=== PATIENT | male | born 1960 | race Caucasian/White ===

== ENCOUNTER 2017-06-02 18:15 | Inpatient (IN) | payer OTHER ==
[2017-06-02] VITALS (10 sets, daily range): BP systolic 143–177; BP diastolic 99–106; PULSE 116–128; RESP 18–20; TEMP 97.8–98.3; O2SAT 91–95
[~2017-06-02] VITALS: Ht 182.9 cm; Wt 112.3 kg
[2017-06-02] MEDS ORDERED: OXYC15TA PO (18:54)
[2017-06-02] MEDS ORDERED: SODIUM CHLORIDE 0.9% FLUSH 10 ML FLUSH IV FLUSH PRN ×2 (19:00→20:15)
[2017-06-02] MEDS ORDERED: SODIUM CHLORID 0.9% 500 ML INJ 500 ML IV ONE (19:00)
--- NOTE | 2017-06-02 19:06 | PD ---
HPI Chief Complaint: General Weakness Time Seen by Provider: 18:36 Travel History International Travel<30 days: No Contact w/Intl Traveler<30days: No Traveled to known affect area: No History of Present Illness HPI The patient is a 57-year-old male who presents to the emergency department for generalized weakness and lethargy of 1-2 months duration. The patient states his symptoms started several months ago, initially thought it was related allergies. However, he notes increasing lethargy, generalized weakness, on a regular basis in [place], [place], where he is from. Patient saw his primary physician several weeks ago and was prescribed a phlebotomy, however, could not find a location to receive the phlebotomy. However, he states the symptoms are slightly different than his previous symptoms with polycythemia. He denies any chest pain, does note exertional shortness of breath. He denies any nausea, vomiting, diarrhea, or abdominal pain. He does note a weight loss of 30-40 pounds over the last 6 months, has not been trying to lose weight on a regular basis. He denies any black tarry stools or rectal bleeding. He does have a history of anemia after previous phlebotomies, but denies any recent history of anemia. The patient does drink 1/5 of vodka daily. PFSH Past Medical History Narrative Medical Polycythemia Medical other: Yes (WHITE BLOOD CELL DISORDER) Musculoskeletal: Yes Tetanus Vaccination: > 5 Years Influenza Vaccination: No Past Surgical History Narrative Surgical Left hip replacement, umbilical hernia repair Abdominal Surgery: Yes (HERNIA REPAIR) Social History Alcohol Use: Yes (16 OZ LIQUAR DAILY) Tobacco Use: No Substance Use: No Allergies-Medications (Allergen,Severity, Reaction): Coded Allergies: No Known Allergies (Verified Allergy, Unknown, 06/02/17) Reported Meds & Prescriptions Reported Meds & Active Scripts Active Reported Oxycodone (Oxycodone HCl) 15 Mg Tab 15 Mg PO Q6H PRN Review of Systems Except as stated in HPI: all other systems reviewed are Neg General / Constitutional: Positive: Weight Loss, No: Fever HENT: No: Lightheadedness Cardiovascular: Positive: Dyspnea on exertion, No: Chest Pain or Discomfort Respiratory: No: Shortness of Breath Gastrointestinal: No: Nausea, Vomiting Musculoskeletal: Positive: Weakness Neurologic: Positive: Weakness Psychiatric: Positive: Substance Abuse (Drinks 1/5 of vodka daily) Hematologic/Lymphatic: Positive: Other (History of polycythemia) Physical Exam Narrative GENERAL: Awake, alert, pleasant 57-year-old male who appears his stated age and is in no acute respiratory distress. SKIN: Focused skin assessment warm/dry. HEAD: Atraumatic. Normocephalic. King complexion with hypervascularity over the nose. EYES: Pupils equal and round. Mild injection bilaterally. ENT: No nasal bleeding or discharge. Slight smell of alcohol on her breath. NECK: Trachea midline. No JVD. CARDIOVASCULAR: Regular, tachycardic with a heart rate in the 120s. RESPIRATORY: No accessory muscle use. Clear to auscultation. Breath sounds equal bilaterally. GASTROINTESTINAL: Abdomen soft, n slightly distended, no rebound tenderness. Splenic margins not palpable. MUSCULOSKELETAL: No obvious deformities. No clubbing. No cyanosis. No edema. NEUROLOGICAL: Awake and alert. No obvious cranial nerve deficits. Motor grossly within normal limits. Normal speech. Nonfocal. PSYCHIATRIC: Appropriate mood and affect; insight and judgment normal. Data Data Last Documented VS Vital Signs Date Time Temp Pulse Resp B/P (MAP) Pulse Ox O2 Delivery O2 Flow Rate FiO2 06/02/17 20:00 119 18 171/100 (123) 94 Room Air 06/02/17 18:17 97.8 Orders Orders Electrocardiogram (06/02/17 18:50) Complete Blood Count With Diff (06/02/17 18:50) Comprehensive Metabolic Panel (06/02/17 18:50) Creatine Kinase (Cpk) (06/02/17 18:50) Thyroid Stimulating Hormone (06/02/17 18:50) Urinalysis - C+S If Indicated (06/02/17 18:50) Chest, Single Ap (06/02/17 18:50) Blood Glucose (06/02/17 18:50) Ecg Monitoring (06/02/17 18:50) Iv Access Insert/Monitor (06/02/17 18:50) Oximetry (06/02/17 18:50) Sodium Chloride 0.9% Flush (Ns Flush) (06/02/17 19:00) Alcohol (Ethanol) (06/02/17 18:50) Free T3 (06/02/17 18:50) Free Thyroxine (T4) (06/02/17 18:50) Sodium Chlorid 0.9% 500 Ml Inj (Ns 500 M (06/02/17 19:00) Sodium Chlor 0.9% 1000 Ml Inj (Ns 1000 M (06/02/17 19:45) Resp Oxygen Nasal Cannula (06/02/17 ) Admit Order (Ed Use Only) (06/02/17 20:07) Place In Observation (06/02/17 ) Vital Signs (Adult) Q4H (06/02/17 20:07) Activity Oob With Assistance (06/02/17 20:07) Credentialing Manager / Telemetry .CONTINUOUS (06/02/17 20:07) Intake + Output NICHO.QSHIFT (06/02/17 20:07) Diet Heart Healthy (06/03/17 Breakfast) Sodium Chlor 0.9% 1000 Ml Inj (Ns 1000 M (06/02/17 20:07) Sodium Chloride 0.9% Flush (Ns Flush) (06/02/17 20:15) Sodium Chloride 0.9% Flush (Ns Flush) (06/02/17 21:00) Acetaminophen (Tylenol) (06/02/17 20:15) Prochlorperazine Supp (Compazine Supp) (06/02/17 20:15) Complete Blood Count With Diff (06/03/17 06:00) Naloxone Inj (Narcan Inj) (06/02/17 20:15) Lorazepam Inj (Ativan Inj) (06/02/17 20:15) Labs Laboratory Tests Test 06/02/17 18:57 06/02/17 19:43 White Blood Count 2.9 TH/MM3 Red Blood Count 6.81 MIL/MM3 Hemoglobin 19.3 GM/DL Hematocrit 58.9 % Mean Corpuscular Volume 86.5 FL Mean Corpuscular Hemoglobin 28.4 PG Mean Corpuscular Hemoglobin Concent 32.8 % Red Cell Distribution Width 22.7 % Platelet Count 109 TH/MM3 Mean Platelet Volume 7.3 FL Neutrophils (%) (Auto) 51.2 % Lymphocytes (%) (Auto) 32.4 % Monocytes (%) (Auto) 14.7 % Eosinophils (%) (Auto) 1.1 % Basophils (%) (Auto) 0.6 % Neutrophils # (Auto) 1.5 TH/MM3 Lymphocytes # (Auto) 1.0 TH/MM3 Monocytes # (Auto) 0.4 TH/MM3 Eosinophils # (Auto) 0.0 TH/MM3 Basophils # (Auto) 0.0 TH/MM3 CBC Comment DIFF FINAL Differential Comment Blood Urea Nitrogen 8 MG/DL Creatinine 0.85 MG/DL Random Glucose 320 MG/DL Total Protein 8.5 GM/DL Albumin 4.3 GM/DL Calcium Level 8.7 MG/DL Alkaline Phosphatase 115 U/L Aspartate Amino Transf (AST/SGOT) 92 U/L Alanine Aminotransferase (ALT/SGPT) 103 U/L Total Bilirubin 0.8 MG/DL Sodium Level 135 MEQ/L Potassium Level 3.2 MEQ/L Chloride Level 92 MEQ/L Carbon Dioxide Level 29.7 MEQ/L Anion Gap 13 MEQ/L Estimat Glomerular Filtration Rate 93 ML/MIN Total Creatine Kinase 213 U/L Free Thyroxine 0.88 NG/DL Free Triiodothyronine (T3) pg/dL 3.11 PG/ML Thyroid Stimulating Hormone 3rd Gen 0.816 uIU/ML Ethyl Alcohol Level 303 MG/DL Urine Color YELLOW Urine Turbidity CLEAR Urine pH 6.5 Urine Specific [place] 1.015 Urine Protein 300 OR GREATER mg/dL Urine Glucose (UA) 1000 OR GREATER mg/dL Urine Ketones 15 mg/dL Urine Occult Blood MOD Urine Nitrite NEG Urine Bilirubin NEG Urine Urobilinogen 0.2 MG/DL Urine Leukocyte Esterase NEG Urine RBC 0-3 /hpf Urine WBC 0-2 /hpf Urine Squamous Epithelial Cells 0-5 /hpf Microscopic Urinalysis Comment CATH-CULT NOT IND MDM Medical Decision Making Medical Screen Exam Complete: Yes Emergency Medical Condition: Yes Medical Record Reviewed: Yes Interpretation(s) EKG reveals sinus tachycardia with a heart rate of 122. Q-wave noted in lead III. Nonspecific T-wave changes noted. Differential Diagnosis Differential diagnosis includes hyperthyroidism, hypothyroidism, cancer, hyponatremia, alcohol abuse, polycythemia, hypocalcemia, hypercalcemia, depression, symptomatic anemia. Narrative Course IV was established, labs were drawn and sent, the patient was placed on cardiac telemetry monitoring and continuous pulse oximetry monitoring. EKG was ordered and interpreted. Laboratory evaluation was sent to lab, the patient was administered IV fluids. The patient was signed out to the oncoming physician at 7 PM. Diagnosis Primary Impression: Polycythemia vera Additional Impressions: Alcohol intoxication Qualified Codes: F10.920 - Alcohol use, unspecified with intoxication, uncomplicated Tachycardia Condition: Stable Jan Rubalcava MD Jun 02, 2017 19:06
[2017-06-02 19:13] LABS: AUTOMATED NEUTROPHIL # 1.5 TH/MM3 (1.8-7.7); BASOPHIL % 0.6 % (0.0-2.0); EOSINOPHIL % 1.1 % (0.0-4.0); HEMATOCRIT 58.9 % (39.0-51.0); HEMOGLOBIN 19.3 GM/DL (13.0-17.0); LYMPH % 32.4 % (9.0-44.0); MEAN CELL VOLUME 86.5 FL (80.0-100.0); MEAN CORPUSCULAR HEMOGLOBIN 28.4 PG (27.0-34.0); MEAN CORPUSCULAR HGB CONC 32.8 % (32.0-36.0); MEAN PLATELET VOLUME 7.3 FL (7.0-11.0); MONO % 14.7 % (0.0-8.0); MONOCYTE # 0.4 TH/MM3 (0-0.9); NEUT % 51.2 % (16.0-70.0); PLATELET COUNT 109 TH/MM3 (150-450); RED BLOOD COUNT 6.81 MIL/MM3 (4.50-5.90); RED CELL DISTRIBUTION WIDTH 22.7 % (11.6-17.2); WHITE BLOOD COUNT 2.9 TH/MM3 (4.0-11.0)
[2017-06-02 19:20] LABS: CHLORIDE 92 MEQ/L (98-107); SODIUM (NA) 135 MEQ/L (136-145)
[2017-06-02 19:24] LABS: ALBUMIN 4.3 GM/DL (3.4-5.0); BICARBONATE 29.7 MEQ/L (21.0-32.0); BLOOD UREA NITROGEN 8 MG/DL (7-18); CALCIUM 8.7 MG/DL (8.5-10.1); GLUCOSE,RANDOM 320 MG/DL (74-106)
[2017-06-02 19:27] LABS: ALT (GPT) 103 U/L (12-78); AST (GOT) 92 U/L (15-37); CREATININE 0.85 MG/DL (0.60-1.30); GLOMERULAR FILTRATION RATE 93 ML/MIN (>89)
[2017-06-02 19:29] LABS: TOTAL BILIRUBIN ADULT 0.8 MG/DL (0.2-1.0); TOTAL PROTEIN 8.5 GM/DL (6.4-8.2)
[2017-06-02 19:30] LABS: ALKALINE PHOSPHATASE 115 U/L (45-117)
[2017-06-02] MEDS ORDERED: SODIUM CHLOR 0.9% 1000 ML INJ 1,000 ML IV ONE (19:45)
--- NOTE | 2017-06-02 19:53 | RADRPT ---
EXAM DATE/TIME: 06/02/2017 19:03 [facility] COMPARISON: No previous studies available for comparison. INDICATIONS : Cough. Weakness. Shortness of breath. MEDICAL HISTORY : None. SURGICAL HISTORY : Abdominal hernia. ENCOUNTER: Initial ACUITY: 2 months PAIN SCORE: 0/10 LOCATION: Bilateral chest FINDINGS: A single view of the chest demonstrates the lungs to be symmetrically aerated without evidence of mas s, infiltrate or effusion. The cardiomediastinal contours are unremarkable. Osseous structures are intact. CONCLUSION: The lungs are clear. Olman Arellano MD on June 02, 2017 at 19:49 Board Certified Radiologist. This report was verified electronically.
[2017-06-02 19:54] LABS: BILIRUBIN, URINE NEG (NEG); BLOOD, URINE MOD (NEG); GLUCOSE,URINE 1000 OR GREATER mg/dL (NEG); KETONE, URINE 15 mg/dL (NEG); NITRITE,URINE NEG (NEG); PH, URINE 6.5 (5.0-8.5); URINE COLOR YELLOW (YELLW/STRAW); URINE LEUKOCYTE ESTERASE NEG (NEG)
[2017-06-02 20:01] LABS: RBC, URINE 0-3 /hpf (0-3); SQUAMOUS EPITHELIAL CELL URINE 0-5 /hpf (0-5); WBC, URINE 0-2 /hpf (0-5)
[2017-06-02] MEDS ORDERED: ACETAMINOPHEN 325 MG TAB PO PRN (20:15)
[2017-06-02] MEDS ORDERED: GLUCAGON 1 MG/ML VIAL OTHER PRN (20:15)
[2017-06-02] MEDS ORDERED: PROCHLORPERAZINE 25 MG SUPP RECTAL PRN (20:15)
[2017-06-02] MEDS ORDERED: DEXTROSE 50% IN WATER 50 ML VIAL(D50) IV PUSH PRN (20:15)
[2017-06-02] MEDS ORDERED: NALOXONE HCL 0.4 MG/ML AMP IV PUSH PRN (20:15)
[2017-06-02] MEDS ORDERED: POTASSIUM CHLORIDE 20 MEQ CONTROLLED RELEASE TAB PO ONE (20:15)
[2017-06-02] MEDS ORDERED: LORazepam 2 MG/ML VIAL IV PUSH PRN (20:15)
--- NOTE | 2017-06-02 22:19 | PD ---
Physical Exam Date Seen by Provider: Jun 02, 2017 Time Seen by Provider: 19:30 Narrative I examined patient who is awake alert he was still tachycardic he says he always runs around 100 I ordered a liter of fluid I reevaluated his labs which has a hematocrit of 59 he is white count serum is 2.9 and his platelets were depressed at 109 possibly from alcohol patient will be admitted to have a hematology consult and possibly have phlebotomy as an inpatient he also has an alcohol of 303 and I put him on Ativan 1 mg IV every 4 hours to prevent withdrawal he is being treated inpatient for he is a heavy drinker. Patient is admitted for further evaluation of his polycythemia vera Data Data Last Documented VS Vital Signs Date Time Temp Pulse Resp B/P (MAP) Pulse Ox O2 Delivery O2 Flow Rate FiO2 06/02/17 20:00 119 18 171/100 (123) 94 Room Air 06/02/17 18:17 97.8 Orders Orders Electrocardiogram (06/02/17 18:50) Complete Blood Count With Diff (06/02/17 18:50) Comprehensive Metabolic Panel (06/02/17 18:50) Creatine Kinase (Cpk) (06/02/17 18:50) Thyroid Stimulating Hormone (06/02/17 18:50) Urinalysis - C+S If Indicated (06/02/17 18:50) Chest, Single Ap (06/02/17 18:50) Blood Glucose (06/02/17 18:50) Ecg Monitoring (06/02/17 18:50) Iv Access Insert/Monitor (06/02/17 18:50) Oximetry (06/02/17 18:50) Sodium Chloride 0.9% Flush (Ns Flush) (06/02/17 19:00) Alcohol (Ethanol) (06/02/17 18:50) Free T3 (06/02/17 18:50) Free Thyroxine (T4) (06/02/17 18:50) Sodium Chlorid 0.9% 500 Ml Inj (Ns 500 M (06/02/17 19:00) Sodium Chlor 0.9% 1000 Ml Inj (Ns 1000 M (06/02/17 19:45) Resp Oxygen Nasal Cannula (06/02/17 ) Admit Order (Ed Use Only) (06/02/17 20:07) Place In Observation (06/02/17 ) Vital Signs (Adult) Q4H (06/02/17 20:07) Activity Oob With Assistance (06/02/17 20:07) Brush Polisher / Telemetry .CONTINUOUS (06/02/17 20:07) Intake + Output NICHO.QSHIFT (06/02/17 20:07) Diet Heart Healthy (06/03/17 Breakfast) Sodium Chlor 0.9% 1000 Ml Inj (Ns 1000 M (06/02/17 20:07) Sodium Chloride 0.9% Flush (Ns Flush) (06/02/17 20:15) Sodium Chloride 0.9% Flush (Ns Flush) (06/02/17 21:00) Acetaminophen (Tylenol) (06/02/17 20:15) Prochlorperazine Supp (Compazine Supp) (06/02/17 20:15) Complete Blood Count With Diff (06/03/17 06:00) Naloxone Inj (Narcan Inj) (06/02/17 20:15) Lorazepam Inj (Ativan Inj) (06/02/17 20:15) Labs Laboratory Tests Test 06/02/17 18:57 06/02/17 19:43 White Blood Count 2.9 TH/MM3 Red Blood Count 6.81 MIL/MM3 Hemoglobin 19.3 GM/DL Hematocrit 58.9 % Mean Corpuscular Volume 86.5 FL Mean Corpuscular Hemoglobin 28.4 PG Mean Corpuscular Hemoglobin Concent 32.8 % Red Cell Distribution Width 22.7 % Platelet Count 109 TH/MM3 Mean Platelet Volume 7.3 FL Neutrophils (%) (Auto) 51.2 % Lymphocytes (%) (Auto) 32.4 % Monocytes (%) (Auto) 14.7 % Eosinophils (%) (Auto) 1.1 % Basophils (%) (Auto) 0.6 % Neutrophils # (Auto) 1.5 TH/MM3 Lymphocytes # (Auto) 1.0 TH/MM3 Monocytes # (Auto) 0.4 TH/MM3 Eosinophils # (Auto) 0.0 TH/MM3 Basophils # (Auto) 0.0 TH/MM3 CBC Comment DIFF FINAL Differential Comment Blood Urea Nitrogen 8 MG/DL Creatinine 0.85 MG/DL Random Glucose 320 MG/DL Total Protein 8.5 GM/DL Albumin 4.3 GM/DL Calcium Level 8.7 MG/DL Alkaline Phosphatase 115 U/L Aspartate Amino Transf (AST/SGOT) 92 U/L Alanine Aminotransferase (ALT/SGPT) 103 U/L Total Bilirubin 0.8 MG/DL Sodium Level 135 MEQ/L Potassium Level 3.2 MEQ/L Chloride Level 92 MEQ/L Carbon Dioxide Level 29.7 MEQ/L Anion Gap 13 MEQ/L Estimat Glomerular Filtration Rate 93 ML/MIN Total Creatine Kinase 213 U/L Thyroid Stimulating Hormone 3rd Gen 0.816 uIU/ML Ethyl Alcohol Level 303 MG/DL Urine Color YELLOW Urine Turbidity CLEAR Urine pH 6.5 Urine Specific [place] 1.015 Urine Protein 300 OR GREATER mg/dL Urine Glucose (UA) 1000 OR GREATER mg/dL Urine Ketones 15 mg/dL Urine Occult Blood MOD Urine Nitrite NEG Urine Bilirubin NEG Urine Urobilinogen 0.2 MG/DL Urine Leukocyte Esterase NEG Urine RBC 0-3 /hpf Urine WBC 0-2 /hpf Urine Squamous Epithelial Cells 0-5 /hpf Microscopic Urinalysis Comment CATH-CULT NOT IND MDM Supervised Visit with TERRI: No Diagnosis Primary Impression: Polycythemia vera Additional Impressions: Alcohol intoxication Qualified Codes: F10.920 - Alcohol use, unspecified with intoxication, uncomplicated Tachycardia Admitting Information Admitting Physician Requests: Observation Condition: Stable Martin Rios MD Jun 02, 2017 22:19
[2017-06-02 22:25] LABS: FREE T3 3.11 PG/ML (2.18-3.98); FREE T4 0.88 NG/DL (0.76-1.46)
[2017-06-02] MEDS: SODIUM CHLORIDE 0.9% FLUSH 10 ML FLUSH IV FLUSH SCH (22:54)
[2017-06-02] MEDS: INSULIN ASPART SUPPLEMENTAL SCALE SQ SCH (22:54)
[2017-06-02] MEDS: SODIUM CHLOR 0.9% 1000 ML INJ 1,000 ML IV SCH (23:06)
[2017-06-03] VITALS (9 sets, daily range): BP systolic 175–189; BP diastolic 96–114; PULSE 114–138; RESP 20; TEMP 97.2–98.3; O2SAT 90–95
[2017-06-03] MEDS ORDERED: cloNIDine HCL 0.1 MG TAB PO ONE ×2 (00:30→04:45)
[2017-06-03] MEDS: SODIUM CHLOR 0.9% 1000 ML INJ 1,000 ML IV SCH ×2 (06:05→15:02)
[2017-06-03 06:56] LABS: AUTOMATED NEUTROPHIL # 2.2 TH/MM3 (1.8-7.7); EOSINOPHIL % 1.2 % (0.0-4.0); HEMATOCRIT 53.5 % (39.0-51.0); HEMOGLOBIN 18.7 GM/DL (13.0-17.0); LYMPH % 24.1 % (9.0-44.0); LYMPHOCYTE # 0.8 TH/MM3 (1.0-4.8); MEAN CORPUSCULAR HEMOGLOBIN 30.1 PG (27.0-34.0); MEAN PLATELET VOLUME 7.5 FL (7.0-11.0); MONO % 15.1 % (0.0-8.0); MONOCYTE # 0.5 TH/MM3 (0-0.9); NEUT % 58.6 % (16.0-70.0); PLATELET COUNT 81 TH/MM3 (150-450); RED BLOOD COUNT 6.22 MIL/MM3 (4.50-5.90); RED CELL DISTRIBUTION WIDTH 23.3 % (11.6-17.2); WHITE BLOOD COUNT 3.5 TH/MM3 (4.0-11.0)
[2017-06-03 07:07] LABS: CHLORIDE 93 MEQ/L (98-107); SODIUM (NA) 136 MEQ/L (136-145)
[2017-06-03 07:11] LABS: BICARBONATE 30.2 MEQ/L (21.0-32.0); CALCIUM 8.3 MG/DL (8.5-10.1)
[2017-06-03 07:18] LABS: ALKALINE PHOSPHATASE 106 U/L (45-117); ALT (GPT) 88 U/L (12-78); AST (GOT) 67 U/L (15-37); BLOOD UREA NITROGEN 6 MG/DL (7-18); CREATININE 0.78 MG/DL (0.60-1.30); GLOMERULAR FILTRATION RATE 103 ML/MIN (>89); GLUCOSE,RANDOM 205 MG/DL (74-106); TOTAL PROTEIN 7.9 GM/DL (6.4-8.2)
[2017-06-03 07:56] LABS: KERATOCYTES OCC (NORMAL)
[2017-06-03] MEDS: LORazepam 2 MG/ML VIAL IV PUSH PRN ×5 (08:00→21:17)
[2017-06-03] MEDS: INSULIN ASPART SUPPLEMENTAL SCALE SQ SCH ×4 (08:00→21:21)
[2017-06-03] MEDS: SODIUM CHLORIDE 0.9% FLUSH 10 ML FLUSH IV FLUSH SCH ×2 (09:00→20:54)
--- NOTE | 2017-06-03 09:33 | HHI.HP ---
[facility] Service [facility] Primary Care Physician Charlie Kim MD Admission Diagnosis Polycytothemia vera jose f Diagnoses: Chief Complaint: Generalized weakness. Travel History International Travel<30 Days: No Contact w/Intl Traveler <30 Da: No Traveled to Known Affected Are: No History of Present Illness Mr. Hobbs is a pleasant 57-year-old male with a history of polycythemia vera who presented to the emergency department on 06/02/2017 due to generalized weakness and lethargy that has been going on for last 1-2 months. He also reports drinking heavier than usual. He has been drinking 5-6 drinks of vodka every day. He denies any chest pain, shortness of breath, fever or chills. Denies any nausea vomiting diarrhea or abdominal pain. Denies any headache, unilateral body weakness. No speech difficulties. He denies any melena or hematochezia. He used to get regular phlebotomy with regards to his polycythemia vera. However he has not received phlebotomy in a while. On arrival temperature 97.8F pulse 128 respiration 18 blood pressure 173/99 pulse oximetry 91% on room air. WBC 2.9, hemoglobin 19.3, hematocrit 58.9, MCV 86.5. Sodium 135, potassium 3.2, creatinine 0.85, random glucose 320. Alcohol level was 303. Review of Systems Except as stated in HPI: all other systems reviewed are Neg Past Family Social History Past Medical History Polycythemia vera Past Surgical History Left hip surgery, umbilical hernia repair, skin cancer removal. Reported Medications Oxycodone 15 mg every 6 hours as needed Allergies: Coded Allergies: No Known Allergies (Verified Allergy, Unknown, 06/02/17) Family History Mother and father both had cancer. Social History Patient denies using tobacco or illicit drugs. He has been drinking more than usual. Drinks about 5-6 vodka drinks per day. Physical Exam Vital Signs Vital Signs Date Time Temp Pulse Resp B/P (MAP) Pulse Ox O2 Delivery O2 Flow Rate FiO2 06/03/17 07:50 98.3 119 20 189/96 (127) 93 3/7/18 04:00 97.9 114 20 177/102 (127) 93 06/03/17 00:00 98.2 124 20 175/109 (131) 90 06/02/17 22:59 95 Nasal Cannula 4.00 06/02/17 22:00 98.3 122 20 177/106 (129) 95 06/02/17 21:44 121 18 170/103 (125) 93 2.00 06/02/17 21:30 118 18 164/103 (123) 93 2.00 06/02/17 21:02 116 18 154/101 (118) 93 Room Air 06/02/17 20:00 119 18 171/100 (123) 94 Room Air 06/02/17 19:30 122 18 174/99 (124) 93 Room Air 06/02/17 19:00 123 18 143/101 (115) 93 Room Air 06/02/17 18:53 91 Room Air 06/02/17 18:17 97.8 128 18 173/99 (123) 91 Physical Exam GENERAL: This is a well-nourished, well-developed patient, in no apparent distress. SKIN: No rashes, ecchymoses or lesions. Warm and dry. HEAD: Atraumatic. Normocephalic. No temporal or scalp tenderness. EYES: Pupils equal round and reactive. No injection or drainage. ENT: Nose without bleeding, purulent drainage or septal hematoma. Airway patent. NECK: Trachea midline. No lymphadenopathy. Supple, nontender, no meningeal signs. CARDIOVASCULAR: Regular rhythm, tachycardic without murmurs, gallops, or rubs. No JVD. RESPIRATORY: Clear to auscultation. Breath sounds equal bilaterally. No wheezes , rales, or rhonchi. GASTROINTESTINAL: Abdomen soft, non-tender, nondistended. No guarding. MUSCULOSKELETAL: Extremities without clubbing, cyanosis, or edema. NEUROLOGICAL: Awake and alert. Cranial nerves II through XII intact. No focal neurological deficits. Normal speech. Laboratory Laboratory Tests Test 06/02/17 18:57 06/02/17 19:43 06/03/17 05:50 White Blood Count 2.9 3.5 Red Blood Count 6.81 6.22 Hemoglobin 19.3 18.7 Hematocrit 58.9 53.5 Mean Corpuscular Volume 86.5 86.0 Mean Corpuscular Hemoglobin 28.4 30.1 Mean Corpuscular Hemoglobin Concent 32.8 35.0 Red Cell Distribution Width 22.7 23.3 Platelet Count 109 81 Mean Platelet Volume 7.3 7.5 Neutrophils (%) (Auto) 51.2 58.6 Lymphocytes (%) (Auto) 32.4 24.1 Monocytes (%) (Auto) 14.7 15.1 Eosinophils (%) (Auto) 1.1 1.2 Basophils (%) (Auto) 0.6 1.0 Neutrophils # (Auto) 1.5 2.2 Lymphocytes # (Auto) 1.0 0.8 Monocytes # (Auto) 0.4 0.5 Eosinophils # (Auto) 0.0 0.0 Basophils # (Auto) 0.0 0.0 CBC Comment DIFF FINAL AUTO DIFF Differential Comment AUTO DIFF CONFIRMED Blood Urea Nitrogen 8 6 Creatinine 0.85 0.78 Random Glucose 320 205 Total Protein 8.5 7.9 Albumin 4.3 4.0 Calcium Level 8.7 8.3 Alkaline Phosphatase 115 106 Aspartate Amino Transf (AST/SGOT) 92 67 Alanine Aminotransferase (ALT/SGPT) 103 88 Total Bilirubin 0.8 1.0 Sodium Level 135 136 Potassium Level 3.2 3.2 Chloride Level 92 93 Carbon Dioxide Level 29.7 30.2 Anion Gap 13 13 Estimat Glomerular Filtration Rate 93 103 Total Creatine Kinase 213 Free Thyroxine 0.88 Free Triiodothyronine (T3) pg/dL 3.11 Thyroid Stimulating Hormone 3rd Gen 0.816 Ethyl Alcohol Level 303 Urine Color YELLOW Urine Turbidity CLEAR Urine pH 6.5 Urine Specific [place] 1.015 Urine Protein 300 OR GREATER Urine Glucose (UA) 1000 OR GREATER Urine Ketones 15 Urine Occult Blood MOD Urine Nitrite NEG Urine Bilirubin NEG Urine Urobilinogen 0.2 Urine Leukocyte Esterase NEG Urine RBC 0-3 Urine WBC 0-2 Urine Squamous Epithelial Cells 0-5 Microscopic Urinalysis Comment CATH-CULT NOT IND Platelet Estimate LOW Platelet Morphology Comment NORMAL Keratocytes OCC Result Diagram: 06/03/17 0550 06/03/17 0550 Imaging Last Impressions Chest X-Ray 06/02/17 1850 Signed Impressions: Service Date/Time: Friday, June 02, 2017 19:03 - CONCLUSION: The lungs are clear. Olman J. Yuschok, MD Caprini VTE Risk Assessment Caprini VTE Risk Assessment: Mod/High Risk (score >= 2) Caprini Risk Assessment Model Point Value = 1 Point Value = 2 Point Value = 3 Point Value = 5 Age 41-60 Minor surgery BMI > 25 kg/m2 Swollen legs Varicose veins or History of unexplained or recurrent spontaneous Oral contraceptives or hormone replacement Sepsis (< 1 month) Serious lung disease, including pneumonia (< 1 month) Abnormal pulmonary function Acute myocardial infarction Congestive heart failure (< 1 month) History of inflammatory bowel disease Medical patient at bed rest Age 61-74 Arthroscopic surgery Major open surgery (> 45 min) Laparoscopic surgery (> 45 min) Malignancy Confined to bed (> 72 hours) Immobilizing plaster cast Central venous access Age >= 75 History of VTE Family history of VTE Factor V Leiden Prothrombin [id number] Lupus anticoagulant Anticardiolipin antibodies Elevated serum homocysteine Heparin-induced thrombocytopenia Other congenital or acquired thrombophilia Stroke (< 1 month) Elective arthroplasty Hip, pelvis, or leg fracture Acute spinal cord injury (< 1 month) Prophylaxis Regimen Total Risk Factor Score Risk Level Prophylaxis Regimen 0-1 Low Early ambulation 2 Moderate Order ONE of the following: *Sequential Compression Device (SCD) *Heparin 5000 units SQ BID 3-4 Higher Order ONE of the following medications: *Heparin 5000 units SQ TID *Enoxaparin/Lovenox 40 mg SQ daily (WT < 150 kg, CrCl > 30 mL/min) *Enoxaparin/Lovenox 30 mg SQ daily (WT < 150 kg, CrCl > 10-29 mL/min) *Enoxaparin/Lovenox 30 mg SQ BID (WT < 150 kg, CrCl > 30 mL/min) AND/OR *Sequential Compression Device (SCD) 5 or more Highest Order ONE of the following medications: *Heparin 5000 units SQ TID (Preferred with Epidurals) *Enoxaparin/Lovenox 40 mg SQ daily (WT < 150 kg, CrCl > 30 mL/min) *Enoxaparin/Lovenox 30 mg SQ daily (WT < 150 kg, CrCl > 10-29 mL/min) *Enoxaparin/Lovenox 30 mg SQ BID (WT < 150 kg, CrCl > 30 mL/min) AND *Sequential Compression Device (SCD) Assessment and Plan Problem List: (1) Polycythemia vera ICD Code: D45 - Polycythemia vera Status: Acute (2) Alcohol intoxication ICD Code: F10.929 - Alcohol use, unspecified with intoxication, unspecified Status: Acute Assessment and Plan Mr. Hobbs is a 57-year-old male with a history of polycythemia vera and alcohol abuse who presents to emergency department due to 2 month duration of generalized weakness. His alcohol level was 303 on admission. He reports no chest pain, shortness of breath, abdominal pain. No changes in bowel or bladder habits. He used to get polycythemia vera but has not received any in the last few months. -Polycythemia vera -Hematology consult pending. Patient will likely need phlebotomy. Goal hematocrit pleasant 45. -We will start aspirin 81 mg daily. -Alcohol intoxication -Start folic acid, thiamine. -Start Librium 50mg TID. Continue CIWA protocol -Continue normal saline at 100 cc/h. -Chronic shoulder pain -continue oxycodone as needed. Full code. SCDs. Problem Qualifiers (1) Alcohol intoxication: Qualified Codes: F10.920 - Alcohol use, unspecified with intoxication, uncomplicated Lorie Last DO Jun 03, 2017 9:33 am
[2017-06-03] MEDS ORDERED: FLUMAZENIL 0.5 MG/5 ML VIAL IV PUSH PRN (09:45)
[2017-06-03] MEDS ORDERED: THIAMINE HCL 100 MG TAB PO ONE (09:45)
[2017-06-03] MEDS ORDERED: LORazepam 2 MG/ML VIAL IV PUSH PRN ×2 (09:45)
[2017-06-03] MEDS ORDERED: FOLIC ACID 1 MG TAB PO ONE (09:45)
[2017-06-03] MEDS ORDERED: chlordiazePOXIDE 25 MG CAP PO SCH (10:00)
[2017-06-03] MEDS: THIAMINE INJ 100 MG in SODIUM CHLORIDE 0.9% INJ 100 ML IV SCH (10:00)
[2017-06-03] MEDS: ASPIRIN EC 81 MG TABEC PO SCH (10:46)
[2017-06-03] MEDS ORDERED: chlordiazePOXIDE 25 MG CAP PO PRN (12:00)
[2017-06-03] MEDS ORDERED: ACETAMINOPHEN 325 MG TAB PO PRN (12:15)
[2017-06-03] MEDS: chlordiazePOXIDE 25 MG CAP PO SCH ×2 (12:58→16:25)
--- NOTE | 2017-06-03 13:52 | EKG ---
Date Performed: 06/02/2017 Time Performed: 19:01:44 PTAGE: 57 years EKG: SINUS TACHYCARDIA LATERAL ST DEPRESSION ABNORMAL ECG NO PREVIOUS TRACING DOCTOR: David Dillard Interpretating Date/Time 06/03/2017 13:50:15
[2017-06-03 16:04] LABS: HEMOGLOBIN A1C 11.4 % (4.3-6.0)
[2017-06-03] MEDS ORDERED: IOHEXOL 350 MG/ML 10 ML VIAL (for RAD DIAG) IVCONTRAST ONE (18:43)
--- NOTE | 2017-06-03 19:08 | RADRPT ---
EXAM DATE/TIME: 06/03/2017 18:39 [facility] COMPARISON: No previous studies available for comparison. INDICATIONS : Polycythemia, evaluate for cirrhosis or liver/renal mass. IV CONTRAST: 100 cc Omnipaque 350 (iohexol) IV ORAL CONTRAST: No oral contrast ingested. RADIATION DOSE: 20.64 CTDIvol (mGy) MEDICAL HISTORY : Polycythemia. SURGICAL HISTORY : Umbilical hernia repair. Hip replacement. ENCOUNTER: Initial ACUITY: 1 day PAIN SCALE: 0/10 LOCATION: abdomen TECHNIQUE: Volumetric scanning of the abdomen and pelvis was performed. Using automated exposure control and ad justment of the mA and/or kV according to patient size, radiation dose was kept as low as reasonably achievable to obtain optimal diagnostic quality images. DICOM format image data is available electro nically for review and comparison. FINDINGS: LOWER LUNGS: There are no infiltrates in the lower lungs. LIVER: Diffuse inhomogeneous decreased density throughout the liver characteristic of diffuse fatty change. No focal lesions seen. There is no dilation of the biliary tree. No calcified gallstones. SPLEEN: Normal size without lesion. PANCREAS: Within normal limits. KIDNEYS: Normal in size and shape. There is no mass, stone or hydronephrosis. Multiple bilateral renal cysts measuring up to 4.8 cm. ADRENAL GLANDS: Within normal limits. VASCULAR: There is no aortic aneurysm. BOWEL/MESENTERY: The stomach, small bowel, and colon demonstrate no acute abnormality. There is no free intraperitone al air or fluid. ABDOMINAL WALL: Within normal limits. RETROPERITONEUM: There is no lymphadenopathy. BLADDER: No wall thickening or mass. REPRODUCTIVE: Within normal limits. INGUINAL: There is no lymphadenopathy or hernia. MUSCULOSKELETAL: Left total hip arthroplasty. Prominent subchondral cyst in the anterior right supra-acetabular regio n. CONCLUSION: 1. Steatosis of the liver. 2. Multiple varying size bilateral renal cysts. No solid lesions seen. Olman Arellano MD on June 03, 2017 at 19:04 Board Certified Radiologist. This report was verified electronically.
--- NOTE | 2017-06-03 19:16 | MB ---
cc: Janel Galeano MD DATE OF CONSULT: 06/03/2017 REASON FOR CONSULTATION: Consult requested by Hospitalist for evaluation of polycythemia vera. HISTORY OF PRESENT ILLNESS: This is a 57-year-old male. He stated that he was diagnosed with polycythemia vera 2-3 years ago when he used to lived in [place], [place]. He used to get phlebotomy on a regular basis. At one point, he became quite anemic and he did not like that sausage stringer and he switched to [facility] in [facility]. He said that he was seeing another sausage stringer who was doing the phlebotomy, however, he has not had a phlebotomy for more than a year now. He moved to this area about 6 months ago in November of last year. He recently got established with primary physician, . His primary physician recommended him to have a phlebotomy done. Patient stated that he has been trying to arrange the phlebotomy for the last 2-3 weeks and he is unable to do that. Patient has been feeling weak , tired and fatigued with no energy. He decided to come to the emergency room with these complaints. CBC on admission showed a white count of 2.9, hemoglobin 19.3, hematocrit 58.9, platelet count 109,000. His alcohol level was found to be 303. Comprehensive metabolic profile shows that liver enzymes are elevated. AST is 92, ALT is 103, total protein is 8.5, glucose is 320. Sodium is 135, potassium is 3.2. Patient is now admitted to the hospital. I have been asked to see him for further evaluation. According to the patient's , he has not been feeling well over the last 1-2 months; so he has been drinking more alcohol. He drinks 5-6 drinks of vodka every day. He is overall not feeling well. He is losing weight. He denies any nausea, vomiting, diarrhea, constipation. He denies any blood in the stools. He denies any cough or shortness of breath. REVIEW OF SYSTEMS: The rest of the review of systems is negative. PAST MEDICAL HISTORY: Polycythemia vera per patient's history, although no records are available . PAST SURGICAL HISTORY: Left hip surgery, umbilical hernia repair, skin cancer surgery/ ALLERGIES: NONE. MEDICATIONS: Primary to coming to the hospital: Oxycodone. FAMILY HISTORY: The patient does not have any brother or any children. He has 1 sister who is alive and well. SOCIAL HISTORY: Patient does not smoke cigarettes. Drinks alcohol heavily. He used to work in security. He moved to this area from [facility] in November of last year. PHYSICAL EXAMINATION: GENERAL: He is a well developed, well nourished, white male in no apparent distress, VITAL SIGNS: Temperature 97.6, heart rate is 132, respiratory rate is 20, blood pressure 181/102. Oxygen saturation 93%. HEENT: PEERLA. EOMI. Anicteric. No oral lesions noted. NECK: No lymphadenopathy noted. LUNGS: Clear. No wheezing, rhonchi, rales. HEART: Regular rate and rhythm. ABDOMEN: Soft, nontender. No hepatosplenomegaly. EXTREMITIES: No pedal edema. NEUROLOGIC: Awake, alert, oriented x 3. SKIN: No significant lesions noted. ASSESSMENT: 1. History of polycythemia vera by patient's verbal account. However we do not have his previous records available to confirm the diagnosis of polycythemia vera. 2. Leukopenia with thrombocytopenia most likely due to alcoholism, however cirrhosis of the liver cannot be ruled out at this time. 3. Alcoholism. 4. Elevated glucose, it is possible that patient could have diabetes, which also can cause weight loss and severe weakness, tiredness and fatigue. 5. Elevated liver enzymes most likely due to the alcoholism. PLAN: 1. I have reviewed his available records and I had an extensive discussion with the patient and his regarding the polycythemia. He said that he was getting routine phlebotomy for several years, however, when he became very anemic he stopped doing the phlebotomy, which was about a year ago. His primary physician has referred him to have phlebotomy at the blood bank. According to them, they have been trying to get this done for the last 2-3 weeks, but they are unable to do that. Clearly his hemoglobin was very high at 19.3 when he came in. Today it came down to 18.7. I have recommended to do 1 unit of therapeutic phlebotomy today. I have discussed with the in-charge nurse to arrange for the therapeutic phlebotomy. He is going to call the blood bank and find out how to arrange the therapeutic phlebotomy in-house. 2. I want to get the JAK2 mutation to confirm the diagnosis of polycythemia vera. I am also concerned with his alcoholism and possible cirrhosis. Patients sometimes who have cirrhosis of the liver can develop hepatoma, which also can cause polycythemia. Also sometimes renal cell cancer can cause polycythemia. Therefore, I will get CAT scan of the abdomen and pelvis with IV contrast to evaluate for cirrhosis or liver or kidney masses as a cause of the polycythemia. 3. I will also get the hemoglobin A1c regarding the possibility of diabetes mellitus. When he came in yesterday, his glucose was 320 and this morning his glucose was 205. I am wondering whether he is diabetic and he has been feeling weak and tired and losing weight, which are some of the symptoms of the diabetes. I will leave it up to the admitting physician to address for diabetes if it is confirmed. His urinalysis also shows urine glucose of more than 1000 and urine protein is more than 300. His alcohol level on admission was 303. Patient is getting a rally pack. Patient was advised to refrain from alcohol if he can. 4. Further recommendation based on his hospital stay. 5. Our hematology team will continue to follow him while he is in the hospital. Thank you for asking my opinion. MD ALAN Sosa/EMILY , 06:19 PM , 07:14 PM [place]
[2017-06-03] MEDS: cloNIDine HCL 0.1 MG TAB PO PRN (21:16)
[2017-06-04] VITALS (11 sets, daily range): BP systolic 127–174; BP diastolic 72–119; PULSE 113–138; RESP 16–20; TEMP 96–98.6; O2SAT 94–96
[2017-06-04] MEDS: LORazepam 2 MG/ML VIAL IV PUSH PRN ×4 (00:01→18:39)
[2017-06-04] MEDS: SODIUM CHLOR 0.9% 1000 ML INJ 1,000 ML IV SCH ×3 (03:07→22:02)
[2017-06-04] MEDS: cloNIDine HCL 0.1 MG TAB PO PRN ×2 (04:22→17:15)
[2017-06-04 05:38] LABS: HEMATOCRIT 60.1 % (39.0-51.0); HEMOGLOBIN 19.4 GM/DL (13.0-17.0); MEAN CELL VOLUME 87.3 FL (80.0-100.0); MEAN CORPUSCULAR HEMOGLOBIN 28.2 PG (27.0-34.0); MEAN CORPUSCULAR HGB CONC 32.3 % (32.0-36.0); PLATELET COUNT 88 TH/MM3 (150-450); RED BLOOD COUNT 6.88 MIL/MM3 (4.50-5.90); RED CELL DISTRIBUTION WIDTH 22.8 % (11.6-17.2); WHITE BLOOD COUNT 6.1 TH/MM3 (4.0-11.0)
[2017-06-04] MEDS: INSULIN ASPART SUPPLEMENTAL SCALE SQ SCH ×4 (08:02→21:04)
[2017-06-04] MEDS: chlordiazePOXIDE 25 MG CAP PO SCH ×3 (08:59→17:19)
[2017-06-04] MEDS: ASPIRIN EC 81 MG TABEC PO SCH (08:59)
[2017-06-04] MEDS: SODIUM CHLORIDE 0.9% FLUSH 10 ML FLUSH IV FLUSH SCH ×2 (08:59→21:04)
[2017-06-04] MEDS: THIAMINE INJ 100 MG in SODIUM CHLORIDE 0.9% INJ 100 ML IV SCH (08:59)
[2017-06-04] MEDS: FOLIC ACID 1 MG TAB PO SCH (08:59)
[2017-06-04] MEDS ORDERED: THIAMINE HCL 100 MG TAB PO SCH (09:00)
[2017-06-04] MEDS ORDERED: BISACODYL 10 MG SUPP RECTAL PRN (09:45)
[2017-06-04] MEDS ORDERED: MAGNESIUM HYDROXIDE SUSP 30 ML CUP PO PRN (09:45)
[2017-06-04] MEDS ORDERED: SENNOSIDES 8.6 MG TAB PO PRN (09:45)
[2017-06-04] MEDS: DOCUSATE SODIUM 50 MG/SENNA 8.6 MG TAB PO SCH ×2 (10:00→21:00)
--- NOTE | 2017-06-04 10:14 | HHI.PR ---
Subjective Remarks Follow-up generalized weakness, polycythemia vera and alcohol intoxication. Patient seen and examined, lying in bed comfortably in no apparent distress. On supplemental O2, 2 L nasal cannula. Hematology and to see patient last evening, with recommendations to undergo phlebotomy. Due for treatment today. Spoke to patient at length regarding disease processes with new onset diabetes. A1c 11.4. Hypertensive this morning. Objective Vitals Vital Signs Date Time Temp Pulse Resp B/P (MAP) Pulse Ox O2 Delivery O2 Flow Rate FiO2 06/04/17 07:50 97.5 138 20 174/119 (137) 96 06/04/17 05:01 128/78 (95) 06/04/17 04:00 98.5 138 20 134/103 (113) 95 06/04/17 01:57 Nasal Cannula 2.00 06/04/17 00:00 98.3 134 16 127/72 (90) 95 06/03/17 23:00 138 06/03/17 20:00 98.2 131 20 181/113 (135) 94 06/03/17 15:50 97.6 132 20 181/102 (128) 93 06/03/17 13:58 20 06/03/17 12:31 182/100 (127) 06/03/17 11:59 97.2 127 20 180/114 (136) 93 I/O 06/03/17 06/03/17 06/03/17 06/04/17 06/04/17 06/04/17 07:00 15:00 23:00 07:00 15:00 23:00 Intake Total 1448 ml 200 ml 240 ml 1000 ml 960 ml Output Total 1700 ml 2200 ml Balance -252 ml 200 ml -1960 ml 1000 ml 960 ml Intake Oral 720 ml 240 ml 960 ml IV Total 728 ml 200 ml 1000 ml Output Urine Total 1700 ml 2200 ml # Voids 3 2 5 # Bowel Movements 0 2 1 Result Diagram: 06/04/17 0456 06/03/17 0550 Imaging Last Impressions Abdomen/Pelvis CT 06/03/17 0000 Signed Impressions: Service Date/Time: Saturday, June 03, 2017 18:39 - CONCLUSION: 1. Steatosis of the liver. 2. Multiple varying size bilateral renal cysts. No solid lesions seen. Olman Arellano MD Chest X-Ray 06/02/17 1850 Signed Impressions: Service Date/Time: Friday, June 02, 2017 19:03 - CONCLUSION: The lungs are clear. Olman Arellano MD Objective Remarks GENERAL: Well-developed, obese male patient in NAD. SKIN: Warm and dry. No rash. HEAD: Normocephalic. Atraumatic. EYES: Pupils equal and round. No scleral icterus. No injection or drainage. ENT: No nasal bleeding or discharge. Mucous membranes pink and moist. NECK: Supple. Trachea midline. CARDIOVASCULAR: Tachycardic rhythm. S1, S2 noted. No murmur appreciated. RESPIRATORY: No accessory muscle use. Diminished breath sounds in lower bases. On supplemental O2. Breath sounds equal bilaterally. GASTROINTESTINAL: Abdomen soft, non-tender, round. normoactive bowel sounds x4. MUSCULOSKELETAL: No obvious deformities. Extremities without clubbing, cyanosis , or edema. NEUROLOGICAL: Awake and alert. No obvious cranial nerve deficits. Motor grossly within normal limits. 5/5 muscle strength in bilateral upper and lower extremities. Normal speech. PSYCHIATRIC: Appropriate mood and affect; insight and judgment normal. A/P Problem List: (1) Polycythemia vera ICD Code: D45 - Polycythemia vera Status: Acute (2) Alcohol intoxication ICD Code: F10.929 - Alcohol use, unspecified with intoxication, unspecified Status: Acute Assessment and Plan Mr. Hobbs is a 57-year-old male with a history of polycythemia vera and alcohol abuse who presents to emergency department due to 2 month duration of generalized weakness. His alcohol level was 303 on admission. He reports no chest pain, shortness of breath, abdominal pain. No changes in bowel or bladder habits. He used to get polycythemia vera but has not received any in the last few months. -Polycythemia, unknown whether primary versus secondary cause? -Appreciate hematology consult. Order for 1 round of phlebotomy today. -Continue aspirin. -Awaiting Jak2 mutation. Pending. Follow. -Alcohol intoxication -Continue folic acid, thiamine. -Continue Librium 50mg TID. Continue CIWA protocol -Continue normal saline at 100 cc/h. -Hypokalemia, K3.2. Replacement ordered. -Hypertension -Tachycardia likely secondary to pain versus alcohol related versus polycythemia vera -Metoprolol 12.5 mg p.o. twice daily. Give first dose now. Monitor heart rate. Continue cardiac telemetry, rule out for any arrhythmias. -Clonidine available as needed. Monitor BP trends. 2D echo ordered, follow. -New onset diabetes: Hemoglobin A1c 11.4. Accu-Chek ACHS, sliding scale insulin , cover as needed. Added Levemir 10 units subcu every night. Monitor blood sugar trends. Consult placed to life educator and dietitian. Appreciate further input recommendations. -Dyslipidemia: Triglycerides 242, cholesterol 362, LDL 241, HDL 72.3. Will place on statin. -Chronic shoulder pain -continue oxycodone as needed. Full code. SCDs. Problem Qualifiers (1) Alcohol intoxication: Qualified Codes: F10.920 - Alcohol use, unspecified with intoxication, uncomplicated Erica Bacon Jun 04, 2017 10:14
[2017-06-04 11:55] LABS: HDL CHOLESTEROL 72.3 MG/DL (40.0-60.0)
[2017-06-04] MEDS ORDERED: INSULIN DETEMIR 100 UNITS/ML VIAL SQ ONE (13:15)
[2017-06-04] MEDS ORDERED: PILL SPLITTER OTHER PRN (13:15)
[2017-06-04] MEDS ORDERED: POTASSIUM CHLORIDE 10 MEQ CONTROLLED RELEASE TAB PO ONE (14:00)
[2017-06-04] MEDS: METOPROLOL TARTRATE 25 MG TAB PO SCH ×2 (14:36→21:03)
--- NOTE | 2017-06-04 15:48 | PD.ONC.PN ---
Subjective Subjective Remarks Feeling better after phlebotomy. No CP. SOB improving. and sister at the bedside. Objective Data Date Time Temp Pulse Resp B/P (MAP) Pulse Ox O2 Delivery O2 Flow Rate FiO2 06/04/17 15:35 20 06/04/17 11:50 96.0 136 20 158/110 (126) 95 06/04/17 07:50 97.5 138 20 174/119 (137) 96 06/04/17 05:01 128/78 (95) 06/04/17 04:00 98.5 138 20 134/103 (113) 95 06/04/17 01:57 Nasal Cannula 2.00 06/04/17 00:00 98.3 134 16 127/72 (90) 95 06/03/17 23:00 138 06/03/17 20:00 98.2 131 20 181/113 (135) 94 06/03/17 15:50 97.6 132 20 181/102 (128) 93 06/04/17 06/04/17 06/04/17 06:59 14:59 22:59 Intake Total 1000 ml 960 ml Balance 1000 ml 960 ml Result Diagram: 06/04/17 0456 06/03/17 0550 Laboratory Results Laboratory Tests Test 06/03/17 20:30 06/04/17 04:56 White Blood Count 6.1 TH/MM3 Red Blood Count 6.88 MIL/MM3 Hemoglobin 19.4 GM/DL Hematocrit 60.1 % Mean Corpuscular Volume 87.3 FL Mean Corpuscular Hemoglobin 28.2 PG Mean Corpuscular Hemoglobin Concent 32.3 % Red Cell Distribution Width 22.8 % Platelet Count 88 TH/MM3 Mean Platelet Volume 8.0 FL Administered Medications Medications (Trade) Dose Ordered Sig/Khari Route PRN Reason Start Time Stop Time Status Last Admin Dose Admin Sodium Chloride 1,000 ml @ 100 mls/hr Q10H IV 06/02/17 20:07 06/04/17 14:29 Sodium Chloride (NS Flush) 2 ml BID IV FLUSH 06/02/17 21:00 06/02/17 22:54 Lorazepam (Ativan Inj) 1 mg Q4H PRN IV PUSH ANXIETY AND/OR AGITATION 06/02/17 20:15 06/02/17 20:43 Insulin Aspart (NovoLOG SUPPLEMENTAL SCALE) 1 ACHS SLIDING SCALE SQ 06/02/17 21:00 06/04/17 12:10 Oxycodone HCl (Roxicodone) 15 mg Q6H PRN PO PAIN SCALE 5 TO 10 06/02/17 20:30 06/04/17 14:30 Aspirin (Ecotrin Ec) 81 mg DAILY PO 06/03/17 09:00 06/04/17 08:59 Lorazepam (Ativan Inj) 1 mg Q4H PRN IV PUSH CIWA 8 - 10 06/03/17 09:45 06/03/17 08:00 Lorazepam (Ativan Inj) 2 mg Q2H PRN IV PUSH CIWA 11-14 06/03/17 09:45 06/04/17 04:21 Lorazepam (Ativan Inj) 2 mg Q1H PRN IV PUSH CIWA 15-20 06/03/17 09:45 06/03/17 16:26 Folic Acid (Folate) 1 mg DAILY PO 06/04/17 09:00 06/04/17 08:59 Thiamine HCl 100 mg/Sodium Chloride 101 ml @ 101 mls/hr DAILY IV 06/03/17 10:00 06/06/17 09:59 06/04/17 08:59 Clonidine (Catapres) 0.1 mg Q6H PRN PO SBP>160, DBP>90 06/03/17 10:00 06/04/17 04:22 Chlordiazepoxide (Librium) 50 mg TID PO 06/03/17 13:00 06/04/17 12:13 Sennosides (Senokot) 17.2 mg Q12H PRN PO Moderate constipation 06/04/17 09:45 06/04/17 11:47 Metoprolol Tartrate (Lopressor) 12.5 mg Q12HR PO 06/04/17 13:15 06/04/17 14:36 Objective Remarks GENERAL: Well-nourished, well-developed patient. SKIN: Warm and dry. Facial flushing HEAD: Normocephalic. EYES: No scleral icterus. No injection or drainage. NECK: Supple, trachea midline. No JVD or lymphadenopathy. LYMPHATIC: No adenopathy. CARDIOVASCULAR: Regular rate and rhythm without murmurs. RESPIRATORY: Breath sounds equal bilaterally. No accessory muscle use. GASTROINTESTINAL: Abdomen soft, non-tender, nondistended. EXTREMITIES: No cyanosis, or edema. MUSCULOSKELETAL: Adequate muscle tone. NEUROLOGICAL: No obvious focal deficit. Awake, alert, and oriented x3. PSYCHIATRIC: Appropriate mood and affect; insight and judgment normal. Assessment/Plan Assessment 1. History of polycythemia vera by patient's verbal record, although we do not have his previous records available to confirm the diagnosis of polycythemia vera. 06/04/17 According to pt's sister, patient has the diagnosis of ?secondary polycythemia and no confirmed diagnosis of P.Vera. However, his Hgb at one point was more than 22 which is more suggestive of P.Vera. His has not f/u and last phlebotomy was >1 1/2 years ago. He has phlebotomy of about 50cc yesterday and about 400 cc today. He is feeling better. Jak2 pending. CT no splenomegaly. 2. Leukopenia with thrombocytopenia most likely due to alcoholism, however cirrhosis of the liver cannot be ruled out at this time. 06/04 Leukopenia resolved. Plt stable. CT no obvious cirrhosis or splenomegaly. 3. Alcoholism. 4. Elevated glucose, HgbA1c elevated c/w DM. 5. Elevated liver enzymes most likely due to the alcoholism. Plan PLAN: 1. Monitor CBC 2. JAK2 pending 3. Arrange for phlebotomy if Hct >50 4. F/u with 5. Discussed with pt and family. Gurvinder Bangura MD Jun 04, 2017 15:48
[2017-06-04 16:42] LABS: HEMOGLOBIN A1C 11.3 % (4.3-6.0)
[2017-06-04] MEDS ORDERED: INSULIN DETEMIR 100 UNITS/ML VIAL SQ SCH (21:00)
[2017-06-04] MEDS: ATORVASTATIN 40 MG TAB PO SCH (21:02)
[2017-06-05] VITALS (13 sets, daily range): BP systolic 135–168; BP diastolic 87–110; PULSE 103–154; RESP 12–20; TEMP 96.5–98.3; O2SAT 91–96
[2017-06-05] MEDS: LORazepam 2 MG TAB PO PRN ×2 (05:28→23:51)
[2017-06-05] MEDS: cloNIDine HCL 0.1 MG TAB PO PRN (05:28)
[2017-06-05 06:49] LABS: AUTOMATED NEUTROPHIL # 3.2 TH/MM3 (1.8-7.7); BASOPHIL % 0.6 % (0.0-2.0); EOSINOPHIL # 0.1 TH/MM3 (0-0.4); EOSINOPHIL % 2.8 % (0.0-4.0); HEMATOCRIT 57.4 % (39.0-51.0); HEMOGLOBIN 18.4 GM/DL (13.0-17.0); LYMPH % 12.2 % (9.0-44.0); LYMPHOCYTE # 0.5 TH/MM3 (1.0-4.8); MEAN CELL VOLUME 88.9 FL (80.0-100.0); MEAN CORPUSCULAR HEMOGLOBIN 28.5 PG (27.0-34.0); MEAN CORPUSCULAR HGB CONC 32.1 % (32.0-36.0); MEAN PLATELET VOLUME 9.1 FL (7.0-11.0); MONO % 14.2 % (0.0-8.0); MONOCYTE # 0.6 TH/MM3 (0-0.9); NEUT % 70.2 % (16.0-70.0); PLATELET COUNT 69 TH/MM3 (150-450); RED BLOOD COUNT 6.46 MIL/MM3 (4.50-5.90); RED CELL DISTRIBUTION WIDTH 22.9 % (11.6-17.2); WHITE BLOOD COUNT 4.4 TH/MM3 (4.0-11.0)
[2017-06-05 07:05] LABS: ALBUMIN 3.2 GM/DL (3.4-5.0); ALKALINE PHOSPHATASE 90 U/L (45-117); ALT (GPT) 45 U/L (12-78); AST (GOT) 31 U/L (15-37); BICARBONATE 28.2 MEQ/L (21.0-32.0); BLOOD UREA NITROGEN 14 MG/DL (7-18); CALCIUM 8.7 MG/DL (8.5-10.1); CHLORIDE 97 MEQ/L (98-107); CREATININE 0.67 MG/DL (0.60-1.30); GLOMERULAR FILTRATION RATE 122 ML/MIN (>89); GLUCOSE,RANDOM 167 MG/DL (74-106); SODIUM (NA) 137 MEQ/L (136-145); TOTAL BILIRUBIN ADULT 1.9 MG/DL (0.2-1.0); TOTAL PROTEIN 6.9 GM/DL (6.4-8.2)
[2017-06-05] MEDS: INSULIN ASPART SUPPLEMENTAL SCALE SQ SCH ×4 (07:48→20:37)
[2017-06-05] MEDS ORDERED: POTASSIUM CHLOR 20 MEQ PREMIX 100 ML IV ONE (08:00)
[2017-06-05] MEDS ORDERED: POTASSIUM CHLORIDE 10 MEQ CONTROLLED RELEASE TAB PO ONE (08:00)
[2017-06-05] MEDS: METOPROLOL TARTRATE 25 MG TAB PO SCH ×2 (08:41→20:39)
[2017-06-05] MEDS: DOCUSATE SODIUM 50 MG/SENNA 8.6 MG TAB PO SCH ×2 (08:42→20:39)
[2017-06-05] MEDS: SODIUM CHLORIDE 0.9% FLUSH 10 ML FLUSH IV FLUSH SCH ×2 (08:43→20:34)
[2017-06-05] MEDS: chlordiazePOXIDE 25 MG CAP PO SCH ×3 (08:43→18:12)
[2017-06-05] MEDS: FOLIC ACID 1 MG TAB PO SCH (08:43)
[2017-06-05] MEDS: ASPIRIN EC 81 MG TABEC PO SCH (09:00)
[2017-06-05] MEDS: INSULIN DETEMIR 100 UNITS/ML VIAL SQ SCH ×2 (10:25→20:37)
--- NOTE | 2017-06-05 10:32 | HHI.PR ---
Subjective Remarks Follow-up generalized weakness, polycythemia vera and alcohol intoxication. Patient seen and examined, lying in bed on supplemental O2. States he has had an uneventful night, denies any pain. Does complain of mild dyspnea. Patient continues to be hypertensive and tachycardic. clinical staff educator and to see patient. Family at bedside and updated extensively about comorbidities and current management. All questions answered. Vital signs stable. Afebrile. Objective Vitals Vital Signs Date Time Temp Pulse Resp B/P (MAP) Pulse Ox O2 Delivery O2 Flow Rate FiO2 06/05/17 08:00 96.5 118 14 166/104 (124) 95 06/05/17 06:22 140/104 (116) 06/05/17 04:00 97.8 114 20 168/110 (129) 96 Automatic Cuff 06/05/17 03:24 20 06/05/17 00:00 98.3 115 20 138/99 (112) 94 06/05/17 00:00 116 06/04/17 20:25 95 Nasal Cannula 1.00 06/04/17 20:00 98.1 119 20 150/102 (118) 95 06/04/17 20:00 116 06/04/17 18:38 117 20 127/101 (110) 94 06/04/17 16:50 98.6 116 20 158/104 (122) 95 06/04/17 15:00 113 06/04/17 11:50 96.0 136 20 158/110 (126) 95 I/O 06/04/17 06/04/17 06/04/17 06/05/17 06/05/17 06/05/17 07:00 15:00 23:00 07:00 15:00 23:00 Intake Total 1000 ml 960 ml 1560 ml 1960 ml 240 ml Output Total 1100.00 ml 500 ml Balance 1000 ml 960 ml 460.00 ml 1460 ml 240 ml Intake Oral 960 ml 1560 ml 960 ml 240 ml IV Total 1000 ml 1000 ml Output Urine Total 650 ml 500 ml Blood Draw 450.00 ml # Voids 5 2 1 # Bowel Movements 1 0 1 Result Diagram: 06/05/17 0545 06/05/17 0545 Imaging Last Impressions Abdomen/Pelvis CT 06/03/17 0000 Signed Impressions: Service Date/Time: Saturday, June 03, 2017 18:39 - CONCLUSION: 1. Steatosis of the liver. 2. Multiple varying size bilateral renal cysts. No solid lesions seen. Olman Arellano MD Chest X-Ray 06/02/17 1850 Signed Impressions: Service Date/Time: Friday, June 02, 2017 19:03 - CONCLUSION: The lungs are clear. Olman Arellano MD Objective Remarks GENERAL: Well-developed, obese male patient in NAD. SKIN: Warm and dry. No rash. HEAD: Normocephalic. Atraumatic. EYES: Pupils equal and round. No scleral icterus. No injection or drainage. ENT: No nasal bleeding or discharge. Mucous membranes pink and moist. NECK: Supple. Trachea midline. CARDIOVASCULAR: Tachycardic rhythm. S1, S2 noted. No murmur appreciated. RESPIRATORY: No accessory muscle use. Diminished breath sounds in lower bases. On supplemental O2. Breath sounds equal bilaterally. GASTROINTESTINAL: Abdomen soft, non-tender, round. normoactive bowel sounds x4. MUSCULOSKELETAL: No obvious deformities. Extremities without clubbing, cyanosis , or edema. NEUROLOGICAL: Awake and alert. No obvious cranial nerve deficits. Motor grossly within normal limits. 5/5 muscle strength in bilateral upper and lower extremities. Normal speech. PSYCHIATRIC: Appropriate mood and affect; insight and judgment normal. A/P Problem List: (1) Polycythemia vera ICD Code: D45 - Polycythemia vera Status: Acute (2) Alcohol intoxication ICD Code: F10.929 - Alcohol use, unspecified with intoxication, unspecified Status: Acute Assessment and Plan Mr. Hobbs is a 57-year-old male with a history of polycythemia vera and alcohol abuse who presents to emergency department due to 2 month duration of generalized weakness. His alcohol level was 303 on admission. He reports no chest pain, shortness of breath, abdominal pain. No changes in bowel or bladder habits. He used to get polycythemia vera but has not received any in the last few months. Polycythemia, unknown whether primary versus secondary cause? -Appreciate hematology consult. Status post phlebotomy yesterday. -Continue aspirin. -Awaiting Jak2 mutation. Pending. Follow. -Spoke to Occupational Physician who will be in to see patient today, possible treatment today versus tomorrow. Alcohol intoxication -Continue folic acid, thiamine. -Continue Librium 50mg TID. Continue CIWA protocol Hypokalemia, 2.8. Replacement ordered. Monitor BMP. Magnesium level ordered. Give Magnesium 1 g IV x 1 now. Hypertension Tachycardia likely secondary to pain versus alcohol related versus polycythemia vera -Continue tachycardia. Currently on Metoprolol 12.5 mg p.o. twice daily, increased to 25 mg. Monitor heart rate. Continue cardiac telemetry, rule out for any arrhythmias. -Clonidine available as needed. Monitor BP trends. -2D echo ordered, follow. -That has been noticed that when Ativan is been given patient's heart rate and blood pressure come down, hypertension tachycardia may be secondary to anxiety. Supportive care. New onset diabetes: Hemoglobin A1c 11.4. Accu-Chek ACHS, sliding scale insulin , cover as needed. Added Levemir 10 units subcu twice daily. Monitor blood sugar trends. Consult placed to adult educator and dietitian. Appreciate further input recommendations. Dyslipidemia: Triglycerides 242, cholesterol 362, LDL 241, HDL 72.3. Will place on statin. Chronic shoulder pain -continue oxycodone as needed. Full code. SCDs. Ambulation. Problem Qualifiers (1) Alcohol intoxication: Qualified Codes: F10.920 - Alcohol use, unspecified with intoxication, uncomplicated Erica Bacon Jun 05, 2017 10:32
[2017-06-05] MEDS ORDERED: ENALAPRILAT 1.25 MG/ML VIAL IV PUSH PRN (11:00)
[2017-06-05] MEDS: THIAMINE INJ 100 MG in SODIUM CHLORIDE 0.9% INJ 100 ML IV SCH (11:29)
[2017-06-05] MEDS: LORazepam 1 MG TAB PO PRN ×2 (11:30→20:45)
--- NOTE | 2017-06-05 14:36 | ECHRPT ---
Indication: shortness of breath CONCLUSIONS Poor, Very technically difficult study. Grossly normal, ejection fraction appears low-normal/normal, around 50-55% in limited views. Moderate concentric left ventricular hypertrophy. Trace mitral valve regurgitation. BP: 140 / 104 HR: 116 Rhythm: Sinus MEASUREMENTS (Male / Female) Normal Values Technical Quality:Poor, Very technically difficult study 2D ECHO LV Diastolic Diameter PLAX 4.1 cm 4.2 - 5.9 / 3.9 - 5.3 cm LV Systolic Diameter PLAX 3.2 cm IVS Diastolic Thickness 2.0 cm 0.6 - 1.0 / 0.6 - 0.9 cm LVPW Diastolic Thickness 2.8 cm 0.6 - 1.0 / 0.6 - 0.9 cm LV Relative Wall Thickness 1.2 RV Internal Dim ED PLAX 2.9 cm LVOT Diameter 2.5 cm LA Systolic Diameter LX 3.6 cm 3.0 - 4.0 / 2.7 - 3.8 cm M-MODE Aortic Root Diameter MM 2.9 cm AV Cusp Separation MM 2.4 cm DOPPLER LV E' Lateral Velocity 4.6 cm/s LV E' Septal Velocity 5.0 cm/s PV Peak Velocity 62.4 cm/s PV Peak Gradient 1.6 mmHg FINDINGS LEFT VENTRICLE Grossly normal, ejection fraction appears low-normal/normal, around 50-55% in limited views. Moderate concentric left ventricular hypertrophy. RIGHT VENTRICLE The right ventricle was not well visualized. LEFT ATRIUM The left atrium was not well visualized. RIGHT ATRIUM The right atrium is not well visualized. ATRIAL SEPTUM The interatrial septum not well visualized. AORTA The aortic root and proximal ascending aorta are not well visualized. MITRAL VALVE Grossly normal No mitral valve stenosis. Trace mitral valve regurgitation. AORTIC VALVE The aortic valve is not well visualized. No aortic valve regurgitation. No aortic valve stenosis. TRICUSPID VALVE The tricuspid valve is not well visualized. PULMONARY VALVE The pulmonary valve is not well visualized. Abhi Patiño DO (Electronically Signed) Final Date:05 June 2017 14:35
[2017-06-05] MEDS ORDERED: MAGNESIUM SULFATE 1 GM PREMIX 100 ML IV ONE (16:30)
[2017-06-05 19:57] LABS: MAGNESIUM 2.1 MG/DL (1.5-2.5)
[2017-06-05] MEDS: ATORVASTATIN 40 MG TAB PO SCH (20:39)
[2017-06-06] VITALS (7 sets, daily range): BP systolic 126–162; BP diastolic 77–106; PULSE 94–108; RESP 14–20; TEMP 97.6–98.2; O2SAT 92–96
[2017-06-06] MEDS: THIAMINE INJ 100 MG in SODIUM CHLORIDE 0.9% INJ 100 ML IV SCH (07:43)
[2017-06-06] MEDS: FOLIC ACID 1 MG TAB PO SCH (07:44)
[2017-06-06] MEDS: DOCUSATE SODIUM 50 MG/SENNA 8.6 MG TAB PO SCH ×2 (07:45→20:09)
[2017-06-06] MEDS: ASPIRIN EC 81 MG TABEC PO SCH (07:45)
[2017-06-06] MEDS: THIAMINE HCL 100 MG TAB PO SCH (07:45)
[2017-06-06] MEDS: METOPROLOL TARTRATE 25 MG TAB PO SCH ×2 (07:45→20:09)
[2017-06-06] MEDS: chlordiazePOXIDE 25 MG CAP PO SCH ×3 (07:45→17:00)
[2017-06-06] MEDS: INSULIN ASPART SUPPLEMENTAL SCALE SQ SCH ×4 (08:00→20:12)
[2017-06-06 08:23] LABS: AUTOMATED NEUTROPHIL # 2.7 TH/MM3 (1.8-7.7); BASOPHIL % 0.5 % (0.0-2.0); EOSINOPHIL # 0.1 TH/MM3 (0-0.4); EOSINOPHIL % 3.5 % (0.0-4.0); HEMATOCRIT 54.1 % (39.0-51.0); HEMOGLOBIN 17.5 GM/DL (13.0-17.0); LYMPH % 13.9 % (9.0-44.0); LYMPHOCYTE # 0.6 TH/MM3 (1.0-4.8); MEAN CELL VOLUME 89.4 FL (80.0-100.0); MEAN CORPUSCULAR HEMOGLOBIN 28.9 PG (27.0-34.0); MEAN CORPUSCULAR HGB CONC 32.3 % (32.0-36.0); MEAN PLATELET VOLUME 8.7 FL (7.0-11.0); MONO % 15.3 % (0.0-8.0); MONOCYTE # 0.6 TH/MM3 (0-0.9); NEUT % 66.8 % (16.0-70.0); PLATELET COUNT 83 TH/MM3 (150-450); RED BLOOD COUNT 6.05 MIL/MM3 (4.50-5.90); RED CELL DISTRIBUTION WIDTH 22.1 % (11.6-17.2)
[2017-06-06 08:35] LABS: BICARBONATE 28.7 MEQ/L (21.0-32.0); CALCIUM 8.7 MG/DL (8.5-10.1)
[2017-06-06 08:38] LABS: CREATININE 0.65 MG/DL (0.60-1.30)
[2017-06-06] MEDS: SODIUM CHLORIDE 0.9% FLUSH 10 ML FLUSH IV FLUSH SCH ×2 (09:00→20:10)
[2017-06-06] MEDS: INSULIN DETEMIR 100 UNITS/ML VIAL SQ SCH ×2 (09:00→20:11)
--- NOTE | 2017-06-06 10:35 | HHI.PR ---
Subjective Remarks Follow-up generalized weakness, polycythemia and alcohol intoxication. Patient seen and examined, sitting up in chair and looks much more improved. States he feels better than he has since he presented to the ED. Dyspnea has much improved. Awaiting physical therapy evaluation today. Has been up with a walker and into the bathroom with no problems. Patient has been eating well with no reports of any nausea or diarrhea. Hypertension and tachycardia more improved. Sister at bedside as well and updated about treatment plan and results of lab work and medication review. Spoke to Dr. Galeano today who will see patient in office upon DC, preferably Thursday. Objective Vitals Vital Signs Date Time Temp Pulse Resp B/P (MAP) Pulse Ox O2 Delivery O2 Flow Rate FiO2 06/06/17 08:44 20 06/06/17 08:00 97.6 99 16 162/106 (124) 93 06/06/17 08:00 94 06/06/17 04:46 98.2 102 18 131/89 (103) 96 06/06/17 00:06 98.0 108 20 135/92 (106) 95 06/05/17 21:40 94 Nasal Cannula 2.50 06/05/17 20:49 97.9 124 18 140/87 (104) 94 06/05/17 16:00 96.6 122 14 135/96 (109) 94 06/05/17 15:45 154 06/05/17 12:15 18 06/05/17 12:00 97.4 103 12 136/93 (107) 91 06/05/17 11:47 114 I/O 06/05/17 06/05/17 06/05/17 06/06/17 06/06/17 06/06/17 07:00 15:00 23:00 07:00 15:00 23:00 Intake Total 1960 ml 441 ml 568 ml 240 ml Output Total 500 ml Balance 1460 ml 441 ml 568 ml 240 ml Intake Oral 960 ml 240 ml 468 ml 240 ml IV Total 1000 ml 201 ml 100 ml Output Urine Total 500 ml # Voids 1 4 4 # Bowel Movements 1 0 Result Diagram: 06/06/17 0720 06/06/17 0720 Imaging Last Impressions Abdomen/Pelvis CT 06/03/17 0000 Signed Impressions: Service Date/Time: Saturday, June 03, 2017 18:39 - CONCLUSION: 1. Steatosis of the liver. 2. Multiple varying size bilateral renal cysts. No solid lesions seen. Olman Arellano MD Chest X-Ray 06/02/17 1850 Signed Impressions: Service Date/Time: Friday, June 02, 2017 19:03 - CONCLUSION: The lungs are clear. Olman Arellano MD Objective Remarks GENERAL: Well-developed, obese male patient in NAD. SKIN: Warm and dry. No rash. HEAD: Normocephalic. Atraumatic. EYES: Pupils equal and round. No scleral icterus. No injection or drainage. ENT: No nasal bleeding or discharge. Mucous membranes pink and moist. NECK: Supple. Trachea midline. CARDIOVASCULAR: Tachycardic rhythm. S1, S2 noted. No murmur appreciated. RESPIRATORY: No accessory muscle use. Diminished breath sounds in lower bases. Breath sounds equal bilaterally. On room air. GASTROINTESTINAL: Abdomen soft, non-tender, round. normoactive bowel sounds x4. MUSCULOSKELETAL: No obvious deformities. Extremities without clubbing, cyanosis , or edema. NEUROLOGICAL: Awake and alert. No obvious cranial nerve deficits. Motor grossly within normal limits. 5/5 muscle strength in bilateral upper and lower extremities. Normal speech. PSYCHIATRIC: Appropriate mood and affect; insight and judgment normal. A/P Problem List: (1) Polycythemia vera ICD Code: D45 - Polycythemia vera Status: Acute (2) Alcohol intoxication ICD Code: F10.929 - Alcohol use, unspecified with intoxication, unspecified Status: Acute Assessment and Plan Mr. Hobbs is a 57-year-old male with a history of polycythemia vera and alcohol abuse who presents to emergency department due to 2 month duration of generalized weakness. His alcohol level was 303 on admission. He reports no chest pain, shortness of breath, abdominal pain. No changes in bowel or bladder habits. He used to get polycythemia vera but has not received any in the last few months. Polycythemia, unknown whether primary versus secondary cause -Appreciate hematology consult. Status post phlebotomy 06/05. -Continue aspirin. -Awaiting Jak2 mutation. Pending. Follow. -Spoke to [employer] Operator who suggested outpatient follow-up in office, preferably Thursday if discharged by then. Alcohol intoxication -Continue folic acid, thiamine. -Continue Librium 50mg TID. Continue CIWA protocol. Hypokalemia: Potassium 2.8 yesterday. Replacement ordered. Improved today. Monitor BMP. Status post 1 g magnesium. Stable today. One episode of V. tach suspect secondary to above. Patient completely asymptomatic. Continued on cardiac telemetry. Electrolytes balanced and improved today. Continue to monitor. Hypertension Tachycardia likely secondary to pain versus alcohol related versus polycythemia vera -Tachycardia resolved. Currently on Metoprolol 25 mg p.o. twice daily. Monitor heart rate. Continue cardiac telemetry, monitor for any arrhythmias -Continue amlodipine. Clonidine available as needed. Monitor BP trends. -2D echo reviewed showing EF 50-55%. Moderate left ventricular hypertrophy. -That has been noticed that when Ativan is been given patient's heart rate and blood pressure come down, hypertension tachycardia may be secondary to anxiety. Supportive care. New onset diabetes: Hemoglobin A1c 11.4. Accu-Chek ACHS, sliding scale insulin , cover as needed. Continue Levemir 10 units subcu twice daily. Monitor blood sugar trends. life educator and dietitian has seen patient. Appreciate further input recommendations. Patient complaint of diabetic neuropathy. Will start on gabapentin low-dose. Dyslipidemia: Triglycerides 242, cholesterol 362, LDL 241, HDL 72.3. Continue statin. Chronic shoulder pain: continue oxycodone as needed. Full code. SCDs. Ambulation. Discharge Planning Awaiting PT recommendations. Likely discharge tomorrow. Problem Qualifiers (1) Alcohol intoxication: Qualified Codes: F10.920 - Alcohol use, unspecified with intoxication, uncomplicated JordiRosauraEricaamarilys BAGLEY Jun 06, 2017 10:35
[2017-06-06] MEDS: GABAPENTIN 100 MG CAP PO SCH (17:00)
[2017-06-06] MEDS: ATORVASTATIN 40 MG TAB PO SCH (20:09)
[2017-06-07 00:09] VITALS: BP 139/79; PULSE 103; RESP 18; TEMP 98.4; O2SAT 93
[2017-06-07 04:23] VITALS: BP 150/105; PULSE 102; RESP 18; TEMP 98.9; O2SAT 95
[2017-06-07 08:01] VITALS: BP 150/87; PULSE 101; RESP 18; TEMP 99.6; O2SAT 89
[2017-06-07] MEDS: INSULIN DETEMIR 100 UNITS/ML VIAL SQ SCH (08:19)
[2017-06-07] MEDS: INSULIN ASPART SUPPLEMENTAL SCALE SQ SCH ×2 (08:19→12:34)
[2017-06-07] MEDS: METOPROLOL TARTRATE 25 MG TAB PO SCH (08:19)
[2017-06-07] MEDS: SODIUM CHLORIDE 0.9% FLUSH 10 ML FLUSH IV FLUSH SCH (08:20)
[2017-06-07] MEDS: FOLIC ACID 1 MG TAB PO SCH (08:20)
[2017-06-07] MEDS: GABAPENTIN 100 MG CAP PO SCH ×2 (08:20→12:34)
[2017-06-07] MEDS: THIAMINE HCL 100 MG TAB PO SCH (08:20)
[2017-06-07] MEDS: ASPIRIN EC 81 MG TABEC PO SCH (08:20)
[2017-06-07] MEDS: DOCUSATE SODIUM 50 MG/SENNA 8.6 MG TAB PO SCH (08:21)
[2017-06-07] MEDS: chlordiazePOXIDE 25 MG CAP PO SCH ×2 (08:21→12:34)
[2017-06-07] MEDS ORDERED: GETGO ROLLING W1 MI1 (08:23)
--- NOTE | 2017-06-07 08:23 | HHI.FF ---
Face to Face Verification Diagnosis: (1) Polycythemia vera (2) Alcohol intoxication (3) Diabetes (4) Hyperlipidemia (5) Hypertension Physical Therapy Order: Evaluate and Treat, Improve ambulation, Strength and gait training Home Health Nursing Order: Medical education Signs/symptoms of disease process Medication education-adverse effect Nursing assessment with vital signs I have seen patient Asif Hobbs on 06/07/17. My clinical findings support the need for the requested home health care services because: Deconditioned w/ increased weakness I certify that my clinical findings support that this patient is homebound because: Unsteady gait/balance Erica Bacon Jun 07, 2017 08:23
[2017-06-07 10:21] LABS: AUTOMATED NEUTROPHIL # 2.2 TH/MM3 (1.8-7.7); BASOPHIL % 0.7 % (0.0-2.0); EOSINOPHIL # 0.1 TH/MM3 (0-0.4); EOSINOPHIL % 3.3 % (0.0-4.0); HEMATOCRIT 51.5 % (39.0-51.0); HEMOGLOBIN 16.7 GM/DL (13.0-17.0); LYMPH % 13.8 % (9.0-44.0); LYMPHOCYTE # 0.5 TH/MM3 (1.0-4.8); MEAN CORPUSCULAR HEMOGLOBIN 29.1 PG (27.0-34.0); MEAN CORPUSCULAR HGB CONC 32.4 % (32.0-36.0); MEAN PLATELET VOLUME 8.8 FL (7.0-11.0); MONO % 18.6 % (0.0-8.0); MONOCYTE # 0.6 TH/MM3 (0-0.9); NEUT % 63.6 % (16.0-70.0); PLATELET COUNT 94 TH/MM3 (150-450); RED BLOOD COUNT 5.73 MIL/MM3 (4.50-5.90); RED CELL DISTRIBUTION WIDTH 21.6 % (11.6-17.2); WHITE BLOOD COUNT 3.5 TH/MM3 (4.0-11.0)
[2017-06-07 10:35] LABS: BICARBONATE 31.4 MEQ/L (21.0-32.0); CALCIUM 8.7 MG/DL (8.5-10.1); MAGNESIUM 2.1 MG/DL (1.5-2.5)
[2017-06-07 10:39] LABS: CREATININE 0.79 MG/DL (0.60-1.30)
[2017-06-07] MEDS ORDERED: POTASSIUM CHLORIDE 20 MEQ CONTROLLED RELEASE TAB PO ONE (11:00)
--- NOTE | 2017-06-07 11:26 | HHI.DS ---
Discharge Summary Admission Date Jun 03, 2017 at 16:36 Discharge Date: Jun 07, 2017 Admitting Diagnosis Polycythemia vera thrombocytopenia (1) Polycythemia vera ICD Code: D45 - Polycythemia vera Status: Acute (2) Alcohol intoxication ICD Code: F10.929 - Alcohol use, unspecified with intoxication, unspecified Status: Acute Procedures See below Brief History - From Admission Mr. Hobbs is a pleasant 57-year-old male with a history of polycythemia vera who presented to the emergency department on 06/02/2017 due to generalized weakness and lethargy that has been going on for last 1-2 months. He also reports drinking heavier than usual. He has been drinking 5-6 drinks of vodka every day. He denies any chest pain, shortness of breath, fever or chills. Denies any nausea vomiting diarrhea or abdominal pain. Denies any headache, unilateral body weakness. No speech difficulties. He denies any melena or hematochezia. He used to get regular phlebotomy with regards to his polycythemia vera. However he has not received phlebotomy in a while. On arrival temperature 97.8F pulse 128 respiration 18 blood pressure 173/99 pulse oximetry 91% on room air. WBC 2.9, hemoglobin 19.3, hematocrit 58.9, MCV 86.5. Sodium 135, potassium 3.2, creatinine 0.85, random glucose 320. Alcohol level was 303. CBC/BMP: 06/07/17 0955 06/07/17 0955 Significant Findings Laboratory Tests Test 06/05/17 05:45 06/05/17 19:11 06/06/17 07:20 06/07/17 09:55 Red Blood Count 6.46 MIL/MM3 (4.50-5.90) 6.05 MIL/MM3 (4.50-5.90) Hemoglobin 18.4 GM/DL (13.0-17.0) 17.5 GM/DL (13.0-17.0) Hematocrit 57.4 % (39.0-51.0) 54.1 % (39.0-51.0) 51.5 % (39.0-51.0) Red Cell Distribution Width 22.9 % (11.6-17.2) 22.1 % (11.6-17.2) 21.6 % (11.6-17.2) Platelet Count 69 TH/MM3 (150-450) 83 TH/MM3 (150-450) 94 TH/MM3 (150-450) Neutrophils (%) (Auto) 70.2 % (16.0-70.0) Monocytes (%) (Auto) 14.2 % (0.0-8.0) 15.3 % (0.0-8.0) 18.6 % (0.0-8.0) Lymphocytes # (Auto) 0.5 TH/MM3 (1.0-4.8) 0.6 TH/MM3 (1.0-4.8) 0.5 TH/MM3 (1.0-4.8) Platelet Estimate LOW (NORMAL) LOW (NORMAL) LOW (NORMAL) Random Glucose 167 MG/DL (74-106) 174 MG/DL (74-106) 251 MG/DL (74-106) Albumin 3.2 GM/DL (3.4-5.0) Total Bilirubin 1.9 MG/DL (0.2-1.0) Potassium Level 2.8 MEQ/L (3.5-5.1) 3.4 MEQ/L (3.5-5.1) 3.1 MEQ/L (3.5-5.1) Chloride Level 97 MEQ/L (98-107) White Blood Count 3.5 TH/MM3 (4.0-11.0) Imaging Last Impressions Abdomen/Pelvis CT 06/03/17 0000 Signed Impressions: Service Date/Time: Saturday, June 03, 2017 18:39 - CONCLUSION: 1. Steatosis of the liver. 2. Multiple varying size bilateral renal cysts. No solid lesions seen. Olman Arellano MD Chest X-Ray 06/02/17 1850 Signed Impressions: Service Date/Time: Friday, June 02, 2017 19:03 - CONCLUSION: The lungs are clear. Olman Arellano MD PE at Discharge GENERAL: Well-developed, obese male patient in NAD. SKIN: Warm and dry. No rash. HEAD: Normocephalic. Atraumatic. EYES: Pupils equal and round. No scleral icterus. No injection or drainage. ENT: No nasal bleeding or discharge. Mucous membranes pink and moist. NECK: Supple. Trachea midline. CARDIOVASCULAR: Tachycardic rhythm. S1, S2 noted. No murmur appreciated. RESPIRATORY: No accessory muscle use. Diminished breath sounds in lower bases. Breath sounds equal bilaterally. On room air. GASTROINTESTINAL: Abdomen soft, non-tender, round. normoactive bowel sounds x4. MUSCULOSKELETAL: No obvious deformities. Extremities without clubbing, cyanosis , or edema. NEUROLOGICAL: Awake and alert. No obvious cranial nerve deficits. Motor grossly within normal limits. 5/5 muscle strength in bilateral upper and lower extremities. Normal speech. PSYCHIATRIC: Appropriate mood and affect; insight and judgment normal. Pt update on day of discharge Follow up new onset DM, generalized weakness, polycythemia and alcohol intoxication. Patient seen and examined, sitting on side of bed, much improved. Labs normal, hemoglobin trending downward. Patient eating well. Denies any acute complaints. All symptoms have resolved. Patient is feeling stronger today. Physical therapy with recommendations to home health care. Patient will be discharged home today with follow-up to PCP and planer stone on Thursday. is at bedside and updated extensively about patient's medical diseases and recommendations for follow-up. Encourage patient to stop drinking alcohol, patient expresses motivation and desire to better himself. Hospital Course Mr. Hobbs is a 57-year-old male with a history of polycythemia vera and alcohol abuse who presents to emergency department due to 2 month duration of generalized weakness. His alcohol level was 303 on admission. He reports no chest pain, shortness of breath, abdominal pain. No changes in bowel or bladder habits. He used to get polycythemia vera but has not received any in the last few months. Polycythemia, unknown whether primary versus secondary cause. Hematology was consulted and one phlebotomy treatment done on 06/05/17. Has been continued. Jak2 mutation still pending, patient is to follow -up with planer stone on Thursday after discharge. Patient arrived with alcohol intoxication, placed on folic acid and thiamine. Was given Librium throughout hospital stay. No signs of withdrawal. Encourage cessation upon discharge patient is motivated and agreeable with plan Patient was significantly hypertensive and tachycardic on presentation may be secondary to anxiety and possible withdrawal symptoms. Was started on metoprolol 25 mg p.o. twice daily, as well as amlodipine. Patient will be discharged on his medicines to follow-up with PCP. Her 2D echo was done showing EF 50-55%. With moderate left ventricular hypertrophy. Patient was hypokalemic during hospital stay, was given replacement. Magnesium was actually stable. It was found that patient was diagnosed with a new onset diabetes, Hemoglobin A1c 11.4 on presentation. Accu-Chek ACHS, sliding scale insulin, as well as started on Levemir 10 units subcu twice daily. PCP to monitor and diabetic A1c. development educator and dietitian has seen patient. Patient complaint of diabetic neuropathy. Will start on gabapentin low-dose, PCP to follow. Patient's lipid panel was checked showing triglycerides 242, cholesterol 362, LDL 241, HDL 72.3. Started on statin. Chronic shoulder pain: continue oxycodone as needed. Patient was stabilized prior to discharge, all symptoms have improved patient felt much better. Follow-up with PCP and planer stone upon discharge. Medications as ordered. Pt Condition on Discharge: Stable Discharge Disposition: Disch w/ Home Health Serv Discharge Time: > 30 minutes Discharge Instructions DIET: Follow Instructions for: Heart Healthy Diet, Diabetic Diet Speech Therapy-Diet Recommends: Regular Activities you can perform: Regular-No Restrictions Follow up Referrals: Oncology/Hematology - 1 Week with Stephanie Galeano MD Patient to make appointment for 06/10/17. PCP Follow-up - 1 Week New Medications: Easy Comfort [place] 31G X 5 mm (Easy Comfort Pen [place] 31G X 5 mm) 31 Gauge X 3/16" Mis BOX .XX DIRECTED for Blood Sugar Management, #1 Lancets (Accu-Chek Soft Touch Lanc) 1 Mis Mis BOX for diabetes, #1 Walker Rolling/GetGo (Walker Rolling/GetGo) 1 Mis Mis EA .XX DIRECTED, #1 Amlodipine (Norvasc) 10 Mg Tab 10 MG PO DAILY for hypertension for 30 Days, #[address] (Aspirin DR) 81 Mg Tabdr 81 MG PO DAILY for CAD for 30 Days, #30 TAB Atorvastatin (Atorvastatin) 40 Mg Tab 40 MG PO HS for high cholesterol for 30 Days, #30 TAB Folic Acid (Folic Acid) 1 Mg Tablet 1 MG PO DAILY for supplement for 30 Days, #30 TAB Gabapentin (Gabapentin) 100 Mg Cap 100 MG PO TID for neuropathy for 30 Days, #90 CAP Insulin Aspart Inj (Novolog Inj) 100 Unit/Ml Inj 1 UNIT SQ ACHS SLIDING SCALE for diabetes for 30 Days, #2 VIAL Insulin Detemir Inj (Levemir Inj) 1,000 unit/ 10 ML Vial 10 UNITS SQ BID for diabetes for 30 Days, #2 VIAL Do not mix with any other Insulin. Metoprolol Tartrate (Metoprolol Tartrate) 25 Mg Tab 25 MG PO Q12HR for CAD for 30 Days, #60 TAB Thiamine HCl (Gnp Vitamin B-1) 100 Mg Tab 100 MG PO DAILY for supplement for 30 Days, #30 TAB Continued Medications: Oxycodone (Oxycodone) 15 Mg Tab 15 MG PO Q6H PRN for PAIN, TAB 0 Refills Erica Bacon Jun 07, 2017 11:26
[2017-06-07 11:31] VITALS: BP 130/79; PULSE 99; RESP 18; TEMP 97.6; O2SAT 95
[2017-06-07] MEDS ORDERED: GABA100C4 PO (11:42)
[2017-06-07] MEDS ORDERED: AMLO10 PO (11:42)
[2017-06-07] MEDS ORDERED: NOVOLOGSS SQ (11:42)
[2017-06-07] MEDS ORDERED: ECASA81 PO (11:42)
[2017-06-07] MEDS ORDERED: THIA100 PO (11:42)
[2017-06-07] MEDS ORDERED: METO25TA3 PO (11:42)
[2017-06-07] MEDS ORDERED: ACCUMIS15 (11:42)
[2017-06-07] MEDS ORDERED: LEVEMIR SQ (11:42)
[2017-06-07] MEDS ORDERED: ATOR40TA16 PO (11:42)
[2017-06-07] MEDS ORDERED: FOLI1TAB6 PO (11:42)
[2017-06-07] MEDS ORDERED: INSU31MI31 (11:42)
== END 2017-06-07 14:28 | disposition home health service (06) | DRG 841 ==
LOC: PHED 18:15 → PHEDA 20:09 → PH3B 21:55 → OBSVTOIN 06-03 16:36
PROVIDERS: ADMIT Hospitalist; ATTEND Hospitalist
DX: D45 Polycythemia vera (principal); I47.2 Ventricular tachycardia; D69.6 Thrombocytopenia, unspecified; E11.40 Type 2 diabetes mellitus with diabetic neuropathy, unspecified; E11.65 Type 2 diabetes mellitus with hyperglycemia; Y90.8 Blood alcohol level of 240 mg/100 ml or more; F10.929 Alcohol use, unspecified with intoxication, unspecified; R53.1 Weakness; Z85.828 Personal history of other malignant neoplasm of skin; G89.29 Other chronic pain; M25.519 Pain in unspecified shoulder; I10 Essential (primary) hypertension; E66.9 Obesity, unspecified; Z68.37 Body mass index [BMI] 37.0-37.9, adult; E87.6 Hypokalemia; E78.5 Hyperlipidemia, unspecified; D72.819 Decreased white blood cell count, unspecified; R06.00 Dyspnea, unspecified; F41.9 Anxiety disorder, unspecified; K74.60 Unspecified cirrhosis of liver
CPT/HCPCS: 71045; 74177; 80048; 80053; 80061; 80307; 81001; 82550; 82948; 83036; 83735; 84132; 84439; 84443; 84481; 85025; 85027; 93005; 93306; 96361; 96372; 96374; G0378; J1815; J2060; J3411; J3475; J3480; J7030; J7040; Q9967